=== PATIENT | male | born 1955 | race Caucasian/White ===

== ENCOUNTER 2018-01-04 04:54 | Emergency (ER) | payer OTHER ==
[~2018-01-04] VITALS: Ht 182.9 cm; Wt 80.7 kg
[2018-01-04 05:40] LABS: ABSOLUTE BASOPHIL COUNT 0 /CUMM (0.0-0.2); ABSOLUTE EOSINOPHIL COUNT 0 /CUMM (0.0-0.7); ABSOLUTE GRANULOCYTE CT 2.8 /CUMM (1.4-6.5); ABSOLUTE LYMPH COUNT 1.7 /CUMM (1.2-3.4); BASOPHIL % 0.6 % (0.0-2.0); EOSINOPHIL % 0.3 % (0-5); GRANULOCYTE % 50.8 % (42.2-75.2); HEMATOCRIT 41.4 % (42-52); MEAN CORPUSCULAR HGB 31.9 PG (27.0-31.0); MEAN CORPUSCULAR HGB CONC 33.9 G/DL (33.0-37.0); MEAN CORPUSCULAR VOLUME 94.1 FL (80.0-94.0); MEAN PLATELET VOLUME 6.4 FL (7.4-10.4); PLATELET COUNT 252 /CUMM (130-400); RBC DISTRIBUTION WIDTH 13.2 % (11.5-14.5); WHITE BLOOD CELL COUNT 5.6 /CUMM (4.8-10.8)
--- NOTE | 2018-01-04 05:45 | ED MVC/FALL/TRAUMA COMPLAINT ---
History of Present Illness General Chief Complaint: Fall Stated Complaint: NAUSEA,FALLS GENERALIZED NOT FEELING WELL Source: patient, old records, EMS Exam Limitations: clinical condition Vital Signs & Intake/Output Vital Signs & Intake/Output Vital Signs Date Time Temp Pulse Resp B/P B/P Pulse O2 O2 Flow FiO2 Mean Ox Delivery Rate 01/04 1115 99.1 86 15 102/70 98 Room Air Room Air 01/04 1001 99.1 76 15 107/70 98 Room Air Room Air 01/04 0659 98.0 90 18 119/72 96 Room Air 01/04 0459 98.4 83 18 133/73 98 Room Air Allergies Coded Allergies: No Known Drug Allergies (nkda 01/04/18) Triage Note: PT BIBA FROM HOME C/O "PAIN ALL OVER MY WHOLE STUPID BODY", NAUSEA, FREQUENT FALLS AND "NOT FEELING WELL S/P DRINKING VODKA FOR THE LAST 4 DAYS. STATES WAS SOBER FOR 15 YRS PRIOR. STATES HE DRANK A LITER OF VODKA IN THE LAST DAY. DENIES DRUGS. PT WAS AMBULATORY ON SCENE ON EMS ARRIVAL. ARRIVES WITH C-COLLAR IN PLACE BY EMS. FINGERSTICK BY EMS 214. PT HAS PRE HOSPITAL IV 20G TO LW. "I GOT SOME BAD NEWS AND I DECIDED TO DRINK" STATES LAST DRINK WAS APPROXIMATLEY AT MIDNIGHT. PT STATES HE CALLED 911 "BECAUSE I KEPT FALLING AND FALLING AND I GOT KNOCKED OUT" Triage Nurses Notes Reviewed? yes Onset: Last week Duration: day(s):, constant, continues in ED Timing: recent history Severity: severe Injuries/Fall Location: head, chest, abdomen, pelvis Method of Injury: fall Loss of Consciousness: unsure Modifying Factors: Improves With: rest. Worsens With: movement, palpation. Associated Symptoms: abdominal pain, chest pain, headache, slurred speech, trouble walking HPI: 5 days prior to admission patient reports drinking alcohol heavily. During this time he reports he has fallen multiple times. His last drink was 5 hours prior to admission. After this time he reports he fell striking his head with loss of consciousness. He complains of headache neck pain chest wall pain abdominal pain pelvic pain. He was ambulatory at EMS arrival. He denies fever chills nausea vomiting diarrhea cough shortness of breath dysuria rash bleeding. (Noel HEWITT,Nasir) Reconcile Medications Amlodipine Besylate/Benazepril (Amlodipine-Benazepril 10-20 MG) 10 MG-20 MG CAPSULE 1 CAP PO DAILY HEART (Reported) Diazepam 5 MG TABLET 1 TAB PO BID MUSCLE SPASMS (Reported) Hydromorphone HCl 4 MG TABLET 1 TAB PO Q4-6 PRN PAIN (Reported) Metoprolol Tartrate 100 MG TABLET 1 TAB PO BID HEART (Reported) (Cindi HEWITT,[facility]) Past History Travel History Traveled to [place] past 21 day No Medical History Any Pertinent Medical History? see below for history Cardiovascular: hypertension Psychiatric: alcohol dependence Surgical History Surgical History: non-contributory Psychosocial History What is your primary language Haitian Tobacco Use: Quit >30 days ago ETOH Use: alcoholic Illicit Drug Use: denies illicit drug use Family History Hx Contributory? No (Nasir Cohen MD) Review of Systems Review of Systems Constitutional: Reports: see HPI, weakness. Eyes: Reports: no symptoms. Ears, Nose, Throat, Mouth: Reports: no symptoms. Respiratory: Reports: no symptoms. Cardiovascular: Reports: see HPI, chest pain. Gastrointestinal/Abdominal: Reports: no symptoms. Genitourinary: Reports: no symptoms. Musculoskeletal: Reports: see HPI, back pain, joint pain, muscle pain, neck pain. Skin: Reports: no symptoms. Neurological/Psychological: Reports: no symptoms. All Other Systems: Reviewed and Negative (Nasir Cohen MD) Physical Exam Physical Exam General Appearance: well developed/nourished, alert, awake, anxious, moderate distress, thin Head: atraumatic, normal appearance Eyes: Bilateral: normal appearance, PERRL, EOMI, normal inspection. Ears, Nose, Throat, Mouth: hearing grossly normal, moist mucous membrane Neck: normal inspection, supple, full range of motion, normal alignment Respiratory: normal breath sounds, no respiratory distress, quiet respiration, lungs clear Cardiovascular: regular rate/rhythm, normal peripheral pulses, norml femoral pulses equa Peripheral Pulses: 4+ carotid (R), 4+ carotid (L) Gastrointestinal: normal bowel sounds, soft, non-tender, no organomegaly Back: normal inspection Extremities: normal range of motion, pelvis stable, no ligament instability Neurologic/Psych: no motor/sensory deficits, awake, alert, oriented x 3, normal mood/affect, watchguard II-XII nml as tested Skin: intact, normal color Core Measures ACS in differential dx? No CVA/TIA Diagnosis No Sepsis Present: No Sepsis Focused Exam Completed? No (Nasir Cohen MD) Progress Differential Diagnosis: abd injury, C/T/L spine injury, ICH, pelvis injury Plan of Care: Orders Procedure Date/time Status Regular Diet 01/04 L Active Add-on Test (ER Only) 01/04 0538 Active TROPONIN LEVEL 01/04 0516 Complete MAGNESIUM 01/04 0516 Complete LIPASE 01/04 0516 Complete ETHANOL 01/04 0516 Complete COMPREHENSIVE METABOLIC PANEL 01/04 0516 Complete CBC WITHOUT DIFFERENTIAL 01/04 0516 Complete PROLACTIN 01/04 0505 Complete Current Medications Sig/Corazon Start time Last Medication Dose Stop Time Status Admin Cyanocobalamin/ 1 BAG ONCE ONE 01/04 0600 AC 01/04 Thiamine/Pyridoxine 01/04 1359 0644 (Vitamin in I.V.) Dextrose/Water 1,000 ML (D5W 1000) Laboratory Tests 01/04/18 0505: Anion Gap 21 H, Estimated GFR > 60, BUN/Creatinine Ratio 8.3, Glucose 143 H, Calcium 9.2, Magnesium 2.0, Total Bilirubin 0.9, AST 60 H, ALT 38, Alkaline Phosphatase 251 H, Troponin I < 0.01, Total Protein 7.0, Albumin 4.2, Globulin 2.8, Albumin/Globulin Ratio 1.5, Lipase 160, Prolactin 13.4, CBC w Diff NO MAN DIFF REQ, RBC 4.40 L, MCV 94.1 H, MCH 31.9 H, MCHC 33.9, RDW 13.2, MPV 6.4 L , Gran % 50.8, Lymphocytes % 30.6, Monocytes % 17.7 H, Eosinophils % 0.3, Basophils % 0.6, Absolute Granulocytes 2.8, Absolute Lymphocytes 1.7, Absolute Monocytes 1.0 H, Absolute Eosinophils 0, Absolute Basophils 0, Serum Alcohol 245.0 Diagnostic Imaging: Viewed by Me: CT Scan. Discussed w/RAD: CT Scan. Radiology Impression: No evidence for acute intracranial injury. No evidence for acute injury to the cervical spine. Mild degenerative change within the cervical spine., No evidence for acute thoracic, abdominal nor pelvic traumatic injury. No abdominal or pelvic free fluid. 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 Likely chronic L1 and L2 vertebral body fractures. Hand-Off Endorsed To: Cindi HEWITT,[facility] Endorsed Time: 0700 Pending: other (sobriety) Comments: Patient declines alcohol detox (Nasir Cohen MD) Departure Departure Condition: Stable Clinical Impression Primary Impression: Alcohol dependence with intoxication Secondary Impressions: Contusion, chest wall, Hypokalemia, Minor head trauma Departure Forms: Customer Survey General Discharge Information (Nasir Cohen MD) Departure Disposition: HOME OR SELF CARE Comments 01/04 1128 patient completely sober. Awake alert and oriented. No complaints. No signs of withdrawal. Walk around with me in the emergency room. No distress. No suicidal homicidal. Safe to go home. His right is coming to pick him up. (Cindi HEWITT,[facility])
--- NOTE | 2018-01-04 06:53 | CT SCAN REPORT ---
EXAMINATIONS: CT HEAD WITHOUT CONTRAST AND CT CERVICAL SPINE WITHOUT CONTRAST CLINICAL INFORMATION: Trauma to head. Loss of consciousness. COMPARISON: None. TECHNIQUE: Contiguous helical images of the brain were obtained without IV contrast. Contiguous helical images of the cervical spine were obtained without IV contrast. Multiplanar reconstructions were performed. DLP: 1104 mGy-cm. FINDINGS: There are no pathologic extra-axial fluid collections. The lateral, third, fourth ventricles are prominent though concordant with the appearance of the sulci. There is no evidence for acute intraparenchymal hemorrhage or infarct. There is neither mass nor mass effect. There is no shift of midline structures. The paranasal sinuses and mastoid air cells are clear. There are no osseous lesions. The cervical vertebra are in normal alignment. Disc heights and vertebral heights are well-preserved. There is mild anterior osteophyte formation throughout the cervical spine. There are no fractures. There is no prevertebral soft tissue swelling. There is no cervical lymphadenopathy. The visualized lung apices are clear. IMPRESSION: No evidence for acute intracranial injury. No evidence for acute injury to the cervical spine. Mild degenerative change within the cervical spine.
--- NOTE | 2018-01-04 06:59 | CT SCAN REPORT ---
EXAMINATION: CT CHEST WITHOUT CONTRAST AND CT ABDOMEN AND PELVIS WITH CONTRAST CLINICAL INFORMATION: Multiple falls. Intoxicated. Concern for injury. COMPARISON: None. TECHNIQUE: Contiguous axial thin section helical images of the chest were obtained without IV contrast. Contiguous axial thin section helical images of the abdomen and pelvis were performed following the administration of 95 mL of intravenous Optiray 320. The data set was reformatted in the coronal and sagittal planes and reviewed on an independent workstation. DLP: 531 mGy-cm. FINDINGS: The heart is of normal size. There is no pericardial effusion. There is neither mediastinal, hilar nor axillary lymphadenopathy. There are no chest wall masses. Review of lung windows demonstrates that there are neither pleural effusions nor pneumothoraces. There are no consolidations. There are no pulmonary parenchymal nodules. The liver is of normal size and attenuation without focal lesions nor intrahepatic biliary ductal dilation. The patient is status post cholecystectomy. Surgical clips are identified. The spleen and adrenal glands are unremarkable. The pancreas is of overall normal size and attenuation. There are no peripancreatic fluid collections. There are coarse pancreatic calcifications present along with mild dilation to the pancreatic duct within the tail of the pancreas. Both kidneys are of normal size and attenuation without hydronephrosis or nephrolithiasis. Following the administration of IV contrast, prompt symmetric nephrograms are displayed. There is no abdominal free fluid. There is neither mesenteric nor retroperitoneal lymphadenopathy. Normal unopacified loops of small and large bowel are identified. A normal appendix is identified. There is no pelvic free fluid. The urinary bladder is unremarkable. There is neither pelvic nor inguinal lymphadenopathy. Bone windows: Neither sclerotic nor lytic bone lesions are identified. There are multiple healed left lateral rib fractures. There is anterior wedging to the L1 and L2 vertebra. This is age indeterminant, though likely chronic. There is disc height loss at L4/L5 and L5/S1. IMPRESSION: No evidence for acute thoracic, abdominal nor pelvic traumatic injury. No abdominal or pelvic free fluid. 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 Likely chronic L1 and L2 vertebral body fractures.
[2018-01-04] MEDS ORDERED: DIAZEPAM5 M1 PO (10:06)
[2018-01-04] MEDS ORDERED: HYDROMORPHONE HC4 M1 PO (10:06)
[2018-01-04] MEDS ORDERED: METOPROLOL TAR100 M1 PO (10:07)
[2018-01-04] MEDS ORDERED: AMLODIPINE-BEN1 EAC4 PO (10:07)
[2018-01-04 12:38] VITALS: BP 118/74
== END 2018-01-04 12:42 ==
LOC: ERH 04:54
PROVIDERS: Emergency Medicine
DX: S09.90XA Unspecified injury of head, initial encounter (principal); S20.219A Contusion of unspecified front wall of thorax, initial encounter; F10.229 Alcohol dependence with intoxication, unspecified; E87.6 Hypokalemia; M54.2 Cervicalgia; R10.9 Unspecified abdominal pain; R07.9 Chest pain, unspecified
CPT/HCPCS: 74177; 96374; 96375; 96376; G0480; J1885; J7060